=== PATIENT | female | born 1985 | race Caucasian/White ===

== ENCOUNTER 2019-07-20 10:26 | Outpatient (CLI) | payer OTHER, SELFPAY ==
[2019-07-20 10:50] LABS: Hematocrit 42.1 % (37.0-47.0); Hemoglobin 14.1 g/dL (12.0-15.0)
== END 2019-07-20 10:27 | disposition home or self-care (01) ==
LOC: ANHSURGERY 10:31
PROVIDERS: Anesthesiology; Visit Provider Obstetrics & Gynecology
DX: N93.9 Abnormal uterine and vaginal bleeding, unspecified (principal)
CPT/HCPCS: 36415; 85014; 85018; 86850; 86900; 86901

== ENCOUNTER 2019-07-26 00:09 | Outpatient (CLI) | payer OTHER, SELFPAY ==
[2019-07-26 18:07] LABS: SARS-CoV-2 RNA PCR Negative
== END 2019-07-26 00:10 | disposition home or self-care (01) ==
LOC: ANHCOVIDDT 00:10
PROVIDERS: Visit Provider Obstetrics & Gynecology
DX: Z01.812 Encounter for preprocedural laboratory examination (principal); Z20.828 Contact with and (suspected) exposure to other viral communicable diseases
CPT/HCPCS: 87635; C9803; U0003

== ENCOUNTER 2019-07-28 13:34 | Inpatient (IN) | payer OTHER, SELFPAY ==
[2019-07-18 14:38] VITALS: BMI 34.9
[2019-07-28] VITALS (15 sets, daily range): BP systolic 98–125; BP diastolic 51–81; PULSE 61–104; RESP 10–18; TEMP 36.4–37.3; O2SAT 96–100
--- NOTE | 2019-07-28 09:05 | PM.IMHP ---
H&P: HPI History of Present Illness Chief complaint: Abnormal Uterine Bleeding Narrative: Yue Bautista is a 34 year old female with a history of abnormal uterine bleeding. Patient has tried oral contraception and progesterone therapy with out success not a candidate for IUD or ablation due to unicornuate uterus and desires hysterectomy. FORMERLY [facility] Past Medical History Medical History (Updated 07/28/19 @ 09:11 by Maico Cortes MD) Abnormal uterine bleeding (AUB) Congenital absence of right kidney PCOS (polycystic ovarian syndrome) Surgical History Surgical History (Updated 07/28/19 @ 09:09 by Maico Cortes MD) H/O: History of cholecystectomy Family History Family History Mother Acute myocardial infarction Family history of diabetes mellitus in first degree relative Family history of neuropathy Family history of heart disease in male family member before age 55 Hypertension Family history of type 1 diabetes mellitus Father Patient's father is in good health Grandparent Family history of malignant neoplasm Acute myocardial infarction, Onset Age: 70 Other Cerebrovascular accident Diabetes mellitus Family history of cardiovascular disease Family history of elevated blood lipids Social History Social History Smoking status: Never smoker Second hand tobacco smoke exposure: No Alcohol intake: never Meds Home Medications and Allergies Home Medications Medication Instructions Recorded Confirmed Type metformin 1,000 mg PO BID 07/18/19 07/18/19 History Allergies Allergy/AdvReac Type Severity Reaction Status Date / Time hydrocodone AdvReac Mild VOMITING Verified 07/18/19 14:42 Exam Const: General: no acute distress Eyes: General: appearance normal, both eyes and all related structures Resp: Auscultation: clear to auscultation bilaterally Cardio: Rate: regular rate Rhythm: regular rhythm GI: GI Palp: Yes Soft to palpation : External Female Exam: normal external appearance Assessment and Plan Assessment and plan (1) Abnormal uterine bleeding (AUB): Code(s): N93.9 - Abnormal uterine and vaginal bleeding, unspecified Status: Acute Assessment and Plan: scheduled for a ATA. Risk and benefits reviewed with patient.
[2019-07-28] MEDS: LACTATED RINGERS 1,000 ML 30 ML IV CONT ×2 (10:30→13:44)
--- NOTE | 2019-07-28 11:16 | WPDANESEPPF ---
Anes - Initial Pre Proc Eval Procedure: Operation Date: 07/28/19 12:00 Proposed Procedures p Total Abdominal Hysterectomy - Maico Cortes MD Date/Time: 07/28/19 11:16 Surgeon: Maico Cortes MD Pre Op Diagnosis: Abnormal Uterine Bleeding Patient Data Age: 34 Gender: F Height: 5 ft 1 in Weight: 87.2 kg Last Vital Signs Temp 36.9 C 07/28/19 10:50 Pulse 77 07/28/19 10:50 Resp 16 07/28/19 10:50 BP 125/81 07/28/19 10:50 Pulse Ox 99 07/28/19 10:50 Allergies Allergy/AdvReac Type Severity Reaction Status Date / Time hydrocodone AdvReac Mild VOMITING Verified 07/28/19 10:07 Home Medications Medication Instructions Recorded Confirmed Type metformin 1,000 mg PO BID 07/18/19 07/28/19 History Patient hx anesthesia problems: none Family hx anesthesia problems: none PMFSH Past Medical History Medical History Abnormal uterine bleeding (AUB) Congenital absence of right kidney PCOS (polycystic ovarian syndrome) Surgical History Surgical History H/O: History of cholecystectomy Family History Family History Mother Acute myocardial infarction Family history of diabetes mellitus in first degree relative Family history of neuropathy Family history of heart disease in male family member before age 55 Hypertension Family history of type 1 diabetes mellitus Father Patient's father is in good health Grandparent Family history of malignant neoplasm Acute myocardial infarction, Onset Age: 70 Other Cerebrovascular accident Diabetes mellitus Family history of cardiovascular disease Family history of elevated blood lipids Social History Social History Smoking status: Never smoker Second hand tobacco smoke exposure: No Alcohol intake: never Anes - Eval Final PreProcedure Day of Procedure 07/28/19 11:16 Patient weight: obese Heart: regular rate and rhythm Lungs: clear to auscultation Airway: Mallampati scale class II Neurological: alert and oriented Last oral intake: >/= 8 hours ASA classification: II Emergent: no Anesthetic plan: proceed Anesthesia type and monitoring: general ETT and standard monitoring Informed Consent: The patient's anesthetic plan and its attendant risks and benefits were discussed with the patient/family/POA. Questions were solicited and answers provided to the satisfaction of the patient/family/POA.
[2019-07-28] MEDS: SCOPOLAMINE 1.5 MG PATCH TRANSDERM (12:01)
--- NOTE | 2019-07-28 13:32 | SUR.OPER ---
EBL:300cc
--- NOTE | 2019-07-28 13:38 | SUR.OPER ---
urine:100cc
--- NOTE | 2019-07-28 14:22 | SUR.PHASEI ---
1421 - called and updated on pt's status
--- NOTE | 2019-07-28 14:45 | PC.NURSE ---
PT arrived on unit via bed unaccompanied alert and awake but nauseated. PT oriented to room 285 and surrounding area. PT introductions made and plan of care discussed per post op museum preparator surgery , pain management, daily care activities. PT verbalized understanding of such care. Cold compress applied to forehead, lights dimmed after assessments and anti emetics given to help with nausea. PT resting comfortable.
[2019-07-28] MEDS: DEXTROSE 5%/0.45% SOD CHL 1,000 ML 125 ML IV CONT (15:06)
[2019-07-28] MEDS: ONDANSETRON INJ 4 MG/2 ML VIAL IV PUSH (15:07)
[2019-07-28] MEDS: KETOROLAC 30 MG/ML VIAL (*BKC) IV PUSH (15:07)
[2019-07-28] MEDS: DOCUSATE SODIUM 100 MG CAPSULE PO (17:00)
[2019-07-28] MEDS: SIMETHICONE 80 MG TAB.CHEW PO ×2 (17:00→22:46)
[2019-07-29] MEDS: IBUPROFEN 600 MG TABLET PO ×3 (03:55→21:25)
[2019-07-29 04:00] VITALS: BP 95/51; PULSE 92; RESP 18; TEMP 37.3; O2SAT 98
[2019-07-29 04:39] LABS: Basophils Percent Auto 0.1 % (0.2-1.2); Immature Granulocyte Absolute 0.07 K/mm3 (0.00-0.031); Immature Granulocyte Percent A 0.5 % (0-0.5); Lymphocytes Absolute Auto 1.25 K/mm3 (0.9-3.2); Lymphocytes Percent Auto 8.1 % (18.3-44.2); Mean Corpuscular HGB Conc 32.4 g/dl (32-36); Mean Corpuscular Hemoglobin 28.8 pg (26-34); Mean Corpuscular Volume 88.7 fl (80-100); Mean Platelet Volume 10.5 fl (7.4-10.4); Monocytes Absolute Auto 0.9 K/mm3 (0.1-0.6); Monocytes Percent Auto 5.6 % (2.6-8.5); Neutrophils Absolute Auto 13.2 K/mm3 (1.3-6.7); Neutrophils Percent Auto 85.7 % (45.5-73.1); Platelet Count Result 329 k/mm3 (150-375); Red Blood Count 4.17 M/mm3 (4.2-5.4); Red Cell Distribution Width 12.6 % (11.5-14.5); White Blood Count 15.4 K/mm3 (4.5-10.0)
[2019-07-29 04:48] LABS: Blood Urea Nitrogen 8 mg/dL (7-17); Carbon Dioxide 29 mmol/L (22-30); Chloride 103 mmol/L (98-107); Estimated CRCL calculation 87 ml/min; Estimated Glomerular Filt Rate > 60; Glucose 125 mg/dL (65-105); Potassium 4.6 mmol/L (3.4-5.0); Sodium 138 mmol/L (137-145)
[2019-07-29 07:00] VITALS: BP 110/63; PULSE 103; RESP 20; TEMP 37.3
--- NOTE | 2019-07-29 11:05 | PM.GYNPNOP ---
COMMERCIAL CARPENTER - A/P Postoperative Procedures: Procedures Operation Date: 07/28/19 12:00 Actual Procedures Side Surgeon p Total Abdominal Hysterectomy Not Applicable Maico Cortes MD Postoperative day: 1 Postoperative status: doing well Postoperative plan: routine post-op care, advance diet and discharge (tomorrow) Time Spent With Patient Time: Total time spent is greater than 50% in coordination of care (as documented) at patient's floor/unit and/or counseling patient: Time with patient: less than 15 minutes COMMERCIAL CARPENTER- PN:Subj Post-Op Subjective Date/time seen: 07/29/19 11:05 Subjective: patient reports feeling better, patient has no complaints, pain is well controlled and patient is tolerating oral intake Review of Systems Constitutional: Constitutional: Reports no additional constitutional complaints Cardiovascular: Cardiovascular: Reports no additional cardiovascular complaints Respiratory: Respiratory: Reports no additional respiratory complaints Gastrointestinal: Gastrointestinal: Reports no additional gastrointestinal complaints Genitourinary: Genitourinary: Reports no additional female genitourinary complaints Exam Const: General: comfortable, no acute distress, alert and awake Resp: Effort & Inspection: normal respiratory effort Auscultation: clear to auscultation bilaterally Cardio: Rate: regular rate Rhythm: regular rhythm GI: Auscultation: normal bowel sounds Other: Incision: C/D/I COMMERCIAL CARPENTER - PN: Obj Data Vital Signs Vital Signs: Vital Signs - 24 hr 07/28/19 13:44 07/28/19 13:50 07/28/19 14:05 Temperature 36.4 C L Pulse Rate 70 71 61 Respiratory Rate 10 L 12 18 Blood Pressure 102/53 L 105/51 L 98/55 L Pulse Oximetry 100 100 100 07/28/19 14:20 07/28/19 14:35 07/28/19 14:48 Temperature 36.8 C Pulse Rate 70 66 76 Respiratory Rate 12 14 18 Blood Pressure 117/70 112/72 112/68 Pulse Oximetry 100 100 99 07/28/19 15:00 07/28/19 15:15 07/28/19 15:30 Temperature Pulse Rate 78 78 79 Respiratory Rate 16 16 18 Blood Pressure 114/63 116/66 121/66 Pulse Oximetry 100 100 100 07/28/19 16:00 07/28/19 17:00 07/28/19 18:00 Temperature Pulse Rate 69 76 72 Respiratory Rate 18 18 18 Blood Pressure 115/62 110/65 114/68 Pulse Oximetry 100 100 100 07/28/19 20:15 07/28/19 23:00 07/29/19 04:00 Temperature 37.3 C 37.3 C 37.3 C Pulse Rate 104 H 102 H 92 Respiratory Rate 18 18 18 Blood Pressure 118/69 108/62 95/51 L Pulse Oximetry 96 99 98 07/29/19 07:00 Temperature 37.3 C Pulse Rate 103 H Respiratory Rate 20 Blood Pressure 110/63 Pulse Oximetry Intake/Output Intake/Output: Intake & Output 07/26/19 07/27/19 07/28/19 07/29/19 23:59 23:59 23:59 23:59 Intake Total 1550 400 Output Total 1300 800 Balance 250 -400 Meds/Results Medications: Active Medications Generic Name Dose Route Start Last Admin Trade Name Freq PRN Reason Stop Dose Admin Hydrocodone Bitart/Acetaminophen 1 tab 07/28/19 13:34 07/28/19 22:46 Arnold 5-325 Mg PO 1 tab Q3H PRN Administration Pain Rated 5 or Less Hydrocodone Bitart/Acetaminophen 1 tab 07/28/19 13:34 Arnold 10-325 Mg PO Q3H PRN Pain Rated 6 or Greater Docusate Sodium 100 mg 07/28/19 17:00 07/28/19 17:00 Colace Capsule PO 100 mg BID GREG Administration Dextrose/Sodium Chloride 1,000 mls @ 125 mls/hr 07/28/19 13:35 07/28/19 23:00 Dextrose 5% Sodium Chloride 0.45% IV CONT Infused .Q8H GREG Infusion Ibuprofen 600 mg 07/28/19 13:34 07/29/19 03:55 Motrin PO 600 mg Q6H PRN Administration Cramping Ketorolac Tromethamine 30 mg 07/28/19 13:34 07/28/19 15:07 Toradol Inj IV PUSH 08/02/19 13:35 30 mg Q6H PRN Administration Pain Rated 4-6 Metoclopramide HCl 10 mg 07/28/19 13:34 Reglan IV PUSH Q6H PRN Nausea Morphine Sulfate 4 mg 07/28/19 13:34 Morphine Sulfate Inj IV PUSH Q4H PRN Pain Rated 7-10 Ondansetron HCl 4 mg
[2019-07-29] MEDS: DOCUSATE SODIUM 100 MG CAPSULE PO ×2 (11:53→16:31)
[2019-07-29 18:40] VITALS: BP 114/68; PULSE 86; RESP 16; TEMP 37.2; O2SAT 98
[2019-07-29] MEDS: ZOLPIDEM TARTRATE 5 MG TABLET PO (21:40)
--- NOTE | 2019-07-29 22:09 | OP_ITS ---
DATE OF PROCEDURE: 07/28/2019 PREOPERATIVE DIAGNOSIS: Abnormal uterine bleeding. POSTOPERATIVE DIAGNOSIS: Abnormal uterine bleeding with unicornuate uterus. PROCEDURE: Total abdominal hysterectomy. 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 DESCRIPTION OF PROCEDURE: The patient was prepped and draped in a normal sterile fashion for abdominal procedure. An incision was made into the abdomen through the subcutaneous tissue, muscular fascia, and peritoneum abdominal cavity. A self-retaining retractor was placed to expose the cavity with 3 lap sponges. The uterus was then identified and grasped on upon this with a tenaculum with retraction. The round ligament on the left side was identified, individually dissected and ligated with 0 Vicryl suture. The bladder flap was then created by blunt and sharp dissection. The fallopian tube and ovarian ligament were isolated through the broad ligament from the uterine body and ligated with 0 Vicryl suture and divided as well. on the left and right side paying close attention to the bladder secondary to the absentee of the right-sided anatomy . The bladder flap was created. The peritoneum was carefully dissected down through uterosacral ligaments with Primitivo clamps cutting the portion of the cervical body junction where the uterine artery joins to the uterus. These were clamped , ligated, and divided using 0 Vicryl suture. The remainder of the uterus was then removed by clamp, cut, dissection technique. The uterosacral ligaments were present on the right side and these were transected and suture ligated off. With removal of the uterus the vaginal cuff was closed in usual manners with 0 Vicryl suture in a running locked fashion. The left ovary was left in situ suspended to the sidewall. The abdomen was irrigated copiously. HemaDerm was applied to the ligament and pedicles. The lap sponges were then removed and a separate drainage tract was removed and the patient tolerated the operation nicely. Sponge count was correct x2. Torres was inspected and clear urine was noted. The fascia was closed with 0 Vicryl suture in a running fashion and the subcutaneous tissue was irrigated and closed with 2-0 Vicryl in a running continuous fashion. Hemostasis was secured throughout the entire layers and incision was then closed as noted. The patient tolerated the procedure well. D I MT: Millie
[2019-07-30 09:40] VITALS: BP 125/79; PULSE 93; RESP 16; TEMP 36.8; O2SAT 100
[2019-07-30] MEDS: IBUPROFEN 600 MG TABLET PO (09:44)
--- NOTE | 2019-08-09 10:01 | PM.DS ---
DS: Admitting Diagnosis Admitting Diagnosis Admitting Diagnosis: Abnormal uterine and vaginal bleeding, unspecified DS: Discharge Diagnosis Discharge Diagnosis (1) Abnormal uterine bleeding (AUB): Code(s): N93.9 - Abnormal uterine and vaginal bleeding, unspecified Status: Acute (2) Unicornuate uterus: Code(s): Q51.4 - Unicornate uterus Status: Acute DS: Summary Time Spent with Patient Time attestation: Total time spent providing and/or coordinating discharge services: DS: Data Data Completed and Pending Completed studies during hospitalization: Pending at discharge 07/28/19 13:36 Surgical [PTH] Routine Discharge Plan Discharge Attending physician on discharge: Maico Cortes Consulting providers: Shasha Willis Discharging Clinician: Shasha Willis Patient Disposition: Home, Self-Care Activity: may shower and pelvic rest Diet: regular Wound Care Instructions: keep dressing dry and incision open to air Patient Instructions: Hysterectomy (DC) Stand Alone Forms: General Discharge Information Follow-up/Referrals: Shasha Willis MD [Physician] - 1 Week Discharge Medications: New hydrocodone-acetaminophen 5-325 mg Tablet 1 tab PO Q3H PRN (Reason: Pain Rated 5 Or Less) Qty: 30 RF: 0 ibuprofen 600 mg Tablet 600 mg PO Q6H PRN (Reason: Cramping) Qty: 60 RF: 0 hydrocodone-acetaminophen 5-325 mg tablet 1 tablet PO Q6H PRN (Reason: pain) Qty: 20 RF: 0 Discontinued metformin 1,000 mg Tablet 1,000 mg PO BID RF: 0 Date of admission: 07/28/19 13:34 Primary Care Provider: PHYSICIAN,BATCH OR CONTINUOUS STILL OPERATOR Admitting Provider: Maico Cortes Discharge Date/Time: 07/30/19 10:22 Attending physician on admission: Maico Cortes
== END 2019-07-30 10:22 | disposition home or self-care (01) | DRG 742 ==
LOC: ANHOB2 14:42
PROVIDERS: Admitting Provider Obstetrics & Gynecology; Visit Provider Obstetrics & Gynecology
PROC: 0UT94ZZ Resection of Uterus, Percutaneous Endoscopic Approach (ICD-10-PCS; principal; 2019-07-28 12:00)
DX: Q51.4 Unicornate uterus (principal); Q60.0 Renal agenesis, unilateral; N93.9 Abnormal uterine and vaginal bleeding, unspecified; E28.2 Polycystic ovarian syndrome
CPT/HCPCS: 36415; 80048; 85025; 88307; A9270; J0131; J0690; J1100; J1885; J2250; J2405; J2704; J2710; J3010; J7120

== ENCOUNTER 2019-10-17 08:48 | Outpatient (CLI) | payer OTHER, SELFPAY ==
[2019-10-17 09:33] LABS: Basophils Percent Auto 0.5 % (0.2-1.2); Eosinophils Absolute Auto 0.2 K/mm3 (0-0.3); Eosinophils Percent Auto 2.9 % (0-4.4); Hematocrit 41.2 % (37.0-47.0); Hemoglobin 13.6 g/dL (12.0-15.0); Immature Granulocyte Absolute 0.02 K/mm3 (0.00-0.031); Immature Granulocyte Percent A 0.3 % (0-0.5); Lymphocytes Absolute Auto 2.61 K/mm3 (0.9-3.2); Lymphocytes Percent Auto 34.8 % (18.3-44.2); Mean Corpuscular Hemoglobin 28.2 pg (26-34); Mean Corpuscular Volume 85.3 fl (80-100); Mean Platelet Volume 10.7 fl (7.4-10.4); Monocytes Absolute Auto 0.5 K/mm3 (0.1-0.6); Monocytes Percent Auto 6.8 % (2.6-8.5); Neutrophils Absolute Auto 4.1 K/mm3 (1.3-6.7); Neutrophils Percent Auto 54.7 % (45.5-73.1); Platelet Count Result 331 k/mm3 (150-375); Red Blood Count 4.83 M/mm3 (4.2-5.4); Red Cell Distribution Width 12.5 % (11.5-14.5); White Blood Count 7.5 K/mm3 (4.5-10.0)
[2019-10-17 09:41] LABS: Add Urine Microscopic? YES; Appearance Urine Clear (Clear); Bacteria Urine Trace /hpf; Bilirubin Urine Negative (Negative); Blood Urine 1+ (Negative); Color Urine Straw (Yellow); Glucose Urine UA Negative (Negative); Ketones Urine Negative (Negative); Leukocyte Esterase Ur Negative LEU/UL (Negative); Mucus Urine Rare /lpf; Nitrate Urine Negative (Negative); Protein Urine Negative (Negative); Specific Grav Ur 1.015 (1.001-1.035); Squamous Epithelial Cell Urine Few /hpf (Few); Urobilinogen Urine Negative mg/dL (<2.0); WBC Urine 0-3 /hpf
[2019-10-17 09:43] LABS: Hemoglobin A1C 5.5 % (<5.7)
[2019-10-17 09:49] LABS: Alanine Aminotransferase 63 U/L (4-35); Albumin Level 4.4 g/dL (3.5-5.1); Alkaline Phosphatase 59 U/L (38-126); Anion Gap 8 mmol/L (8-16); Aspartate Amino Transferase 49 U/L (14-36); Bilirubin,Total 0.4 mg/dL (0.2-1.3); Blood Urea Nitrogen 10 mg/dL (7-17); CRP 0.7 mg/dL (<1.0); Calcium 9.4 mg/dL (8.4-10.2); Carbon Dioxide 28 mmol/L (22-30); Chloride 103 mmol/L (98-107); Estimated Glomerular Filt Rate > 60; Glucose 95 mg/dL (65-105); Potassium 4.2 mmol/L (3.4-5.0); Sodium 139 mmol/L (137-145)
[2019-10-17 10:17] LABS: Free T4 Free Thyroxine 0.79 ng/mL (0.78-2.19)
[2019-10-17 10:18] LABS: Vitamin D 25 Hydroxy 25.3 ng/mL
[2019-10-17 10:52] LABS: Folic Acid 7.9 ng/mL (2.76->20)
[2019-10-20 04:39] LABS: Thyroid Peroxidase Antibodies <1 IU/mL (<9)
[2019-10-20 06:08] LABS: Triiodothyronine T3 Free 3.4 pg/mL (2.3-4.2)
[2019-10-21 05:18] LABS: CA-125 15 U/mL (<35); Insulin Level Total 31.4 uIU/mL (<=19.6); Sex Hormone Binding Globulin 33 nmol/L (17-124)
[2019-10-21 10:02] LABS: T3 Reverse 12 ng/dL (8-25)
[2019-10-21 12:59] LABS: Thyroid Stimulating Immunoglob <89 % baseline (<140)
[2019-10-21 13:48] LABS: DHEA-Sulfate 180 mcg/dL (23-266)
[2019-10-22 00:52] LABS: Estradiol, Ultrasensitive 75 pg/mL
[2019-10-22 22:01] LABS: FSH 4.6 mIU/mL (***); Progesterone 0.3 ng/mL (***)
== END 2019-10-17 08:49 | disposition home or self-care (01) ==
LOC: ANHLAB 08:48
PROVIDERS: PCP Family Medicine; Visit Provider Family Medicine
DX: E28.2 Polycystic ovarian syndrome (principal); Q60.0 Renal agenesis, unilateral; R73.9 Hyperglycemia, unspecified; Z79.899 Other long term (current) drug therapy; Z82.62 Family history of osteoporosis; Z90.49 Acquired absence of other specified parts of digestive tract; Z90.710 Acquired absence of both cervix and uterus; N99.89 Other postprocedural complications and disorders of genitourinary system; Z98.51 Tubal ligation status; G25.81 Restless legs syndrome
CPT/HCPCS: 36415; 80053; 81001; 82306; 82607; 82627; 82670; 82746; 83001; 83036; 83525; 84144; 84270; 84439; 84445; 84481; 84482; 85025; 86140; 86304; 86376

== ENCOUNTER 2019-12-11 08:47 | Outpatient (CLI) | payer OTHER, SELFPAY ==
[2019-12-11 09:32] LABS: Cholesterol 195 mg/dL (0-200); HDL Direct 28 mg/dL; Triglycerides 152 mg/dL (<150)
[2019-12-11 09:43] LABS: LDL Cholesterol Direct 128 mg/dL
[2019-12-11 10:17] LABS: Vitamin D 25 Hydroxy 50.3 ng/mL
[2019-12-11 10:40] LABS: Folic Acid 5.5 ng/mL (2.76->20)
[2019-12-14 10:17] LABS: T3 Reverse 11 ng/dL (8-25)
[2019-12-14 11:29] LABS: FSH 6.1 mIU/mL (***); Progesterone 0.3 ng/mL (***); Triiodothyronine T3 Free 2.7 pg/mL (2.3-4.2)
[2019-12-15 06:46] LABS: Sex Hormone Binding Globulin 31 nmol/L (17-124)
[2019-12-16 11:29] LABS: Testosterone Free 2.8 pg/mL (0.1-6.4); Testosterone Total 19 ng/dL (2-45)
[2019-12-16 23:41] LABS: Estradiol, Ultrasensitive 38 pg/mL
== END 2019-12-11 08:48 | disposition home or self-care (01) ==
PROVIDERS: PCP Family Medicine; Visit Provider Family Medicine
DX: E53.8 Deficiency of other specified B group vitamins (principal); E66.9 Obesity, unspecified; R89.9 Unspecified abnormal finding in specimens from other organs, systems and tissues; Q60.0 Renal agenesis, unilateral; R79.89 Other specified abnormal findings of blood chemistry; E34.9 Endocrine disorder, unspecified; E28.39 Other primary ovarian failure; Z79.899 Other long term (current) drug therapy; N99.89 Other postprocedural complications and disorders of genitourinary system; Z98.51 Tubal ligation status
CPT/HCPCS: 36415; 80061; 82306; 82607; 82670; 82746; 83001; 84144; 84270; 84402; 84403; 84439; 84443; 84481; 84482

== ENCOUNTER 2019-12-22 09:01 | Outpatient (CLI) | payer OTHER, SELFPAY ==
[2019-12-27 03:30] LABS: Insulin Level Total 9.1 uIU/mL (<=19.6)
== END 2019-12-22 09:02 | disposition home or self-care (01) ==
LOC: ANHLAB 09:03
PROVIDERS: PCP Family Medicine; Visit Provider Family Medicine
DX: R73.9 Hyperglycemia, unspecified (principal); Z79.899 Other long term (current) drug therapy
CPT/HCPCS: 36415; 83525

== ENCOUNTER 2020-03-14 10:31 | Outpatient (CLI) | payer OTHER, SELFPAY ==
[2020-03-14 19:52] LABS: Free T4 Free Thyroxine 0.79 ng/mL (0.78-2.19); Vitamin D 25 Hydroxy 33.8 ng/mL
[2020-03-14 20:05] LABS: Thyroid Stimulating Hormone 0.742 uIU/mL (0.465-4.680)
[2020-03-14 20:40] LABS: Folic Acid 7.9 ng/mL (2.76->20)
[2020-03-19 06:15] LABS: Progesterone 3.1 ng/mL (***)
[2020-03-19 11:08] LABS: T3 Reverse 11 ng/dL (8-25)
== END 2020-03-14 10:32 | disposition home or self-care (01) ==
PROVIDERS: PCP Family Medicine; Visit Provider Family Medicine
DX: E34.9 Endocrine disorder, unspecified (principal); E53.8 Deficiency of other specified B group vitamins; R79.89 Other specified abnormal findings of blood chemistry; E28.2 Polycystic ovarian syndrome; R53.83 Other fatigue; Z79.899 Other long term (current) drug therapy; N99.89 Other postprocedural complications and disorders of genitourinary system; Z98.51 Tubal ligation status; G25.81 Restless legs syndrome
CPT/HCPCS: 36415; 82306; 82607; 82746; 84144; 84439; 84443; 84481; 84482

== ENCOUNTER 2021-02-11 09:26 | Outpatient (CLI) | payer OTHER, SELFPAY ==
[2021-02-11 19:49] LABS: Vitamin D 25 Hydroxy 25.3 ng/mL
[2021-02-11 20:03] LABS: Thyroid Stimulating Hormone Reflex 0.778 uIU/mL (0.465-4.68)
[2021-02-11 20:06] LABS: Hematocrit 43.9 % (37.0-47.0); Mean Corpuscular HGB Conc 31.9 g/dl (32-36); Mean Corpuscular Hemoglobin 29.2 pg (26-34); Mean Corpuscular Volume 91.6 fl (80-100); Mean Platelet Volume 10.6 fl (7.4-10.4); Platelet Count Result 303 k/mm3 (150-375); Red Blood Count 4.79 M/mm3 (4.2-5.4); Red Cell Distribution Width 12.9 % (11.5-14.5); White Blood Count 6.9 K/mm3 (4.5-10.0)
[2021-02-11 20:46] LABS: Alanine Aminotransferase 92 U/L (4-35); Alkaline Phosphatase 76 U/L (38-126); Anion Gap 12 mmol/L (8-16); Aspartate Amino Transferase 56 U/L (14-36); Bilirubin,Total 0.5 mg/dL (0.2-1.3); Blood Urea Nitrogen 12 mg/dL (7-17); Calcium 10.6 mg/dL (8.4-10.2); Carbon Dioxide 22 mmol/L (22-30); Chloride 105 mmol/L (98-107); Cholesterol 241 mg/dL (0-200); Estimated Glomerular Filt Rate > 60; Glucose 94 mg/dL (65-110); HDL Direct 56 mg/dL; Potassium 4.7 mmol/L (3.4-5.0); Sodium 139 mmol/L (137-145); Triglycerides 117 mg/dL (<150)
[2021-02-11 20:57] LABS: LDL Cholesterol Direct 135 mg/dL
== END 2021-02-11 09:27 | disposition home or self-care (01) ==
LOC: ANHBWCLAB 09:27
PROVIDERS: PCP Family Medicine; Visit Provider Family Medicine
DX: R53.83 Other fatigue (principal); E28.39 Other primary ovarian failure; Q60.0 Renal agenesis, unilateral; E28.2 Polycystic ovarian syndrome; Z90.710 Acquired absence of both cervix and uterus; Z00.00 Encounter for general adult medical examination without abnormal findings; R79.89 Other specified abnormal findings of blood chemistry
CPT/HCPCS: 36415; 80053; 80061; 82306; 84443; 85027